=== PATIENT | male | born 1930 | race Caucasian/White ===

== ENCOUNTER 2016-11-03 16:41 | Emergency (ER) | payer OTHER ==
[2016-11-03 16:56] VITALS: BP 149/56; PULSE 66; RESP 18; TEMP 97.3; O2SAT 96
--- NOTE | 2016-11-03 17:13 | EDPHY ---
H & P Stated Complaint: pt having some delayed clotting with scrapes/on plavix Time Seen by Provider: 11/03/16 17:12 HPI/ROS: CHIEF COMPLAINT: Concerned about prolonged bleeding from superficial cut HISTORY OF PRESENT ILLNESS: The patient presents to the ED after he developed some prolonged bleeding from 2 superficial cuts over the past several days. The patient had a small cut on his arm and face. The patient reported took nearly 3 days to scab over and stop bleeding. The patient denies any additional complaints of bleeding. He is currently taking Plavix. The patient denies specifically melena or any hematemesis. The patient denies any acute traumatic complaints. REVIEW OF SYSTEMS: A comprehensive 10 point review of systems is otherwise negative aside from elements mentioned in the history of present illness. Source: Patient Exam Limitations: No limitations - Personal History Current Tetanus/Diphtheria Vaccine: Yes Tetanus Vaccine Date: 2012 - Medical/Surgical History Hx Asthma: No Hx Chronic Respiratory Disease: No Hx Diabetes: Yes Hx Cardiac Disease: Yes Hx Renal Disease: No Hx Cirrhosis: No Hx Alcoholism: No Hx HIV/AIDS: No Hx Splenectomy or Spleen Trauma: No Other PMH: MEDICAL- VTACH W/ SUDDEN , CVA- 1973, TIA'S, DM, DEFIBRILLATOR, PACEMAKER, HTN, HLD, RHABDOMYLOSIS [place]- 'S, HYPOTHYROID. SURGICAL- TRIPLE BYPASS, STENTS, ORTHO - Social History Smoking Status: Never smoked - Physical Exam Exam: General Appearance: Alert, no distress Eyes: Pupils equal and round no pallor or injection ENT, Mouth: Mucous membranes moist Respiratory: There are no retractions, lungs are clear to auscultation Cardiovascular: Regular rate and rhythm Gastrointestinal: Abdomen is soft and nontender, no masses, bowel sounds normal Neurological: A&O, normal motor function, normal sensory exam, normal cranial nerves Skin: Superficial hemostatic abrasions noted to arm and face Musculoskeletal: Neck is supple nontender Extremities: symmetrical, full range of motion Constitutional: Initial Vital Signs Temperature (C) 36.3 C 11/03/16 16:52 Heart Rate 66 11/03/16 16:52 Respiratory Rate 18 11/03/16 16:52 Blood Pressure 149/56 H 11/03/16 16:52 O2 Sat (%) 96 11/03/16 16:52 O2 Delivery Mode Room Air Allergies/Adverse Reactions: No Known Allergies Allergy (Verified 11/03/16 16:49) Home Medications: Medication Instructions Recorded Aspirin [Aspirin 81mg (OTC)] 81 mg PO DAILY 03/26/13 Cholecalciferol Vit D3 [Vitamin D3 2,000 units PO TID 03/26/13 2000 units (OTC)] Coenzyme Q10 [Co Q-10 30 mg (OTC)] 30 mg PO DAILY 03/26/13 Gemfibrozil [Lopid 600 MG (RX)] 600 mg PO BIDAC 03/26/13 Herbals/Supplements -Info Only 1 each PO AD 03/26/13 Levothyroxine [Synthroid 75 mcg 75 mcg PO DAILY 03/26/13 (RX)] Losartan Potassium [Cozaar] 50 mg PO HS 03/26/13 Magnesium Oxide [Magnesium Oxide 400 mg PO BID 03/26/13 400 mg (OTC)] Metoprolol Succinate Xr [Toprol Xl 50 mg PO HS 03/26/13 50 mg (RX)] Selenium [Selenium 200mcg (OTC)] 200 mcg PO DAILY 03/26/13 Vitamin B Complex [Vitamin B 1 each PO DAILY 03/26/13 Complex (OTC)] Vitamin E [Vitamin E 400 units 400 unit PO DAILY 03/26/13 (OTC)] metFORMIN HCL [Glucophage] 500 mg PO BIDMEAL 03/26/13 Clopidogrel 09/23/13 Lopid 600 MG (RX) 09/23/13 Losartan Potassium 09/23/13 MAGNESIUM 09/23/13 Metoprolol Succinate Xr [Toprol Xl 09/23/13 50 mg (RX)] Medical Decision Making ED Course/Re-evaluation: The patient has been reassured there is no evidence of life-threatening bleeding. I would recommend that he continue Plavix as directed given the fact his superficial abrasions are completely hemostatic. Departure - Departure Disposition: Home, Routine, Self-Care Clinical Impression: Superficial abrasion Condition: Good Instructions: Abrasion (ED) Additional Instructions: 1. Please return to the emergency department for uncontrolled bleeding. 2. Please continue Plavix as directed. 3. Please follow up with your primary care provider as needed. Referrals: Monet Buenrostro MD [Primary Care Provider] - As per Instructions
== END 2016-11-03 17:29 | disposition home or self-care (01) ==
DX: S00.81XA Abrasion of other part of head, initial encounter (principal); S40.819A Abrasion of unspecified upper arm, initial encounter; I10 Essential (primary) hypertension; E11.9 Type 2 diabetes mellitus without complications; Z86.73 Personal history of transient ischemic attack (TIA), and cerebral infarction without residual deficits; Z95.0 Presence of cardiac pacemaker; Z79.82 Long term (current) use of aspirin; Z79.84 Long term (current) use of oral hypoglycemic drugs; W45.8XXA Other foreign body or object entering through skin, initial encounter

== ENCOUNTER 2017-07-24 21:43 | Inpatient (IN) | payer OTHER ==
--- NOTE | 2017-07-24 21:53 | EDPHY ---
H & P Time Seen by Provider: 07/24/17 21:46 HPI/ROS: CHIEF COMPLAINT: AICD firing HISTORY OF PRESENT ILLNESS: Patient in July of 2014 had an Evera XT implantable defibrillator placed by Dr. Armin Leon for ventricular tachycardia with syncope. Patient presents today because he had his defibrillator started firing at 2:30 p.m.. He says it went off 6 times the last 1 at 8:15 p.m.. Was not associated with chest pain or shortness of breath palpitations or syncope. Brought in by EMS with no further defibrillator shocks noted. REVIEW OF SYSTEMS: Eye: no change in vision ENT: no sore throat Cardiac: no chest pain or syncope Pulmonary: no cough or SOB Abdomen: no vomiting, diarrhea, abdominal pain Musculoskeletal: no back pain Skin: no rash Neuro: no headache Constitutional: no fever : no urinary symptoms A comprehensive 10 point review of systems is otherwise negative aside from elements mentioned in the history of present illness. PAST MEDICAL HISTORY: Bypass grafting in 2012, defibrillator placement in 2013 as above. Ventricular tachycardia. 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 Eyes: No scleral icterus. ENT, Mouth: Normal mucous membranes. Respiratory: Normal respiratory effort, breath sounds equal, lungs are clear to auscultation. Cardiovascular: Regular rate and rhythm. Gastrointestinal: Abdomen is soft and non tender. Neurological: Alert and oriented x3. Normally conversant. Face symmetric, normal movement and sensation in all extremities. Skin: Warm and dry, no rashes. Musculoskeletal: No peripheral edema and no joint swelling. Psychiatric: Not agitated. Emergency Department course/MDM: Supplemental oxygen placed for hypoxia, 2 L by nasal cannula. Plan for [employer] pacer interrogation, admission for monitoring, cardiology consultation. 4: Patient got shocked in x-ray, review of strip shows a 30+ beat run of ventricular tachycardia. 2217: Discussed with Manju. Get interrogation tonight, [employer] rep to see alexey, amiodarone 150mg then drip protocol. 2222: marybeth Cowart to admit. 2227: 3rd shock for recurrent DVT in the emergency department. Amiodarone started in the emergency department. Magnesium 2g IV. Smoking Status: Never smoked Constitutional: Initial Vital Signs Temperature (C) 36.5 C 07/24/17 21:45 Heart Rate 100 07/24/17 21:45 Respiratory Rate 18 07/24/17 21:45 Blood Pressure 116/80 07/24/17 21:45 O2 Sat (%) 90 L 07/24/17 21:45 O2 Delivery Mode Room Air Allergies/Adverse Reactions: No Known Allergies Allergy (Verified 11/03/16 16:49) Home Medications: Medication Instructions Recorded Aspirin [Aspirin 81mg (OTC)] 81 mg PO DAILY 03/26/13 Cholecalciferol Vit D3 [Vitamin D3 2,000 units PO TID 03/26/13 2000 units (OTC)] Coenzyme Q10 [Co Q-10 30 mg (OTC)] 30 mg PO DAILY 03/26/13 Gemfibrozil [Lopid 600 MG (RX)] 600 mg PO BIDAC 03/26/13 Herbals/Supplements -Info Only 1 each PO AD 03/26/13 Levothyroxine [Synthroid 75 mcg 75 mcg PO DAILY 03/26/13 (RX)] Losartan Potassium [Cozaar] 50 mg PO HS 03/26/13 Magnesium Oxide [Magnesium Oxide 400 mg PO BID 03/26/13 400 mg (OTC)] Metoprolol Succinate Xr [Toprol Xl 50 mg PO HS 03/26/13 50 mg (RX)] Selenium [Selenium 200mcg (OTC)] 200 mcg PO DAILY 03/26/13 Vitamin B Complex [Vitamin B 1 each PO DAILY 03/26/13 Complex (OTC)] Vitamin E [Vitamin E 400 units 400 unit PO DAILY 03/26/13 (OTC)] metFORMIN HCL [Glucophage] 500 mg PO BIDMEAL 03/26/13 Clopidogrel 09/23/13 Lopid 600 MG (RX) 09/23/13 Losartan Potassium 09/23/13 MAGNESIUM 09/23/13 Metoprolol Succinate Xr [Toprol Xl 09/23/13 50 mg (RX)] Medical Decision Making - Diagnostics EKG Interpretation: 12-lead EKG interpreted by me; official reading is in trace master. My interpretation is sinus rhythm with left bundle branch block. Imaging Results: Imaging Impressions Chest X-Ray 07/24/17 21:53 Impression: 1. Pacemaker/AICD unchanged in configuration. 2. No pulmonary edema or acute process. Critical Care Time: Critical care time spent by me, Dr. Craig, exclusively with the care of this patient was 35 minutes, exclusive of PA or NETWORK DIAGNOSTIC SUPPORT SPECIALIST time and exclusive of separate procedures. The organ system at risk was cardiovascular and I ordered EKG, oxygen, interpretation of multiple rhythm strips, consultation with hospitalist and whipper beater, IV magnesium and amiodarone; to stabilize the patient and prevent worsening of the patient's condition. - Data Points Laboratory Results: Laboratory Results 07/24/17 21:55 07/24/17 21:55 07/24/17 07/24/17 21:55 21:55 WBC 8.02 10^3/uL 10^3/uL (3.80-9.50) RBC 4.71 10^6/uL 10^6/uL (4.40-6.38) Hgb 14.2 g/dL g/dL (13.7-17.5) Hct 41.4 % % (40.0-51.0) MCV 87.9 fL fL (81.5-99.8) MCH 30.1 pg pg (27.9-34.1) MCHC 34.3 g/dL g/dL (32.4-36.7) RDW 13.2 % % (11.5-15.2) Plt Count 311 10^3/uL 10^3/uL (150-400) MPV 10.5 fL fL (8.7-11.7) Neut % (Auto) 62.9 % % (39.3-74.2) Lymph % (Auto) 19.8 % % (15.0-45.0) [place] % (Auto) 8.9 % % (4.5-13.0) Eos % (Auto) 7.4 % % (0.6-7.6) Baso % (Auto) 0.6 % % (0.3-1.7) Nucleat RBC Rel Count 0.0 % % (0.0-0.2) Absolute Neuts (auto) 5.05 10^3/uL 10^3/uL (1.70-6.50) Absolute Lymphs (auto) 1.59 10^3/uL 10^3/uL (1.00-3.00) Absolute Monos (auto) 0.71 10^3/uL 10^3/uL (0.30-0.80) Absolute Eos (auto) 0.59 10^3/uL H 10^3/uL (0.03-0.40) Absolute Basos (auto) 0.05 10^3/uL 10^3/uL (0.02-0.10) Absolute Nucleated RBC 0.00 10^3/uL 10^3/uL (0-0.01) Immature Gran % 0.4 % % (0.0-1.1) Immature Gran # 0.03 10^3/uL 10^3/uL (0.00-0.10) Sodium 143 mEq/L mEq/L (134-144) Potassium 4.5 mEq/L mEq/L (3.5-5.2) Chloride 101 mEq/L mEq/L (97-110) Carbon Dioxide 22 mEq/l mEq/l (22-31) Anion Gap 20 mEq/L H mEq/L (8-16) BUN 40 mg/dL H mg/dL (7-23) Creatinine 1.0 mg/dL mg/dL (0.7-1.3) Estimated GFR > 60 Glucose 176 mg/dL H mg/dL (70-100) Calcium 10.5 mg/dL H mg/dL (8.5-10.4) Troponin I 0.013 ng/mL ng/mL (0.000-0.034) Medications Given: Magnesium Sulfate (Magnesium Sulf 2 Gm (Premix)) 50 mls @ 50 mls/hr IV EDNOW ONE Stop: 07/24/17 23:20 Last Admin: 07/24/17 22:38 Dose: 50 mls Amiodarone HCl (Amiodarone Hcl) 200 mls @ 33.333 mls/hr IV ONCE ONE Stop: 07/25/17 04:20 Last Admin: 07/24/17 22:46 Dose: 200 mls Discontinued Medications Amiodarone HCl (Amiodarone Hcl) 150 mg IV EDNOW ONE Stop: 07/24/17 22:22 Last Admin: 07/24/17 22:27 Dose: Not Given Amiodarone HCl (Amiodarone Hcl) 100 mls @ 600 mls/hr IV ONCE ONE Stop: 07/24/17 22:35 Last Admin: 07/24/17 22:35 Dose: 100 mls Departure - Departure Disposition: [facility] Clinical Impression: Ventricular tachycardia Condition: Serious
[2017-07-24 22:09] LABS: % IMMATURE GRANULYOCYTES 0.4 % (0.0-1.1); ABSOLUTE IMMATURE GRANULOCYTES 0.03 10^3/uL (0.00-0.10); ADD DIFF? NO; ADD MORPH? NO; ADD SCAN? NO; ATYPICAL LYMPHOCYTE FLAG 0 (0-99); FRAGMENT RBC FLAG 0 (0-99); HEMATOCRIT 41.4 % (40.0-51.0); HEMOGLOBIN 14.2 g/dL (13.7-17.5); LEFT SHIFT FLG 0 (0-99); LIPEMIA HEMOLYSIS FLAG 90 (0-99); MEAN CELL HEMOGLOBIN 30.1 pg (27.9-34.1); MEAN CELL HEMOGLOBIN CONCENTR. 34.3 g/dL (32.4-36.7); MEAN CELL VOLUME 87.9 fL (81.5-99.8); MEAN PLATELET VOLUME 10.5 fL (8.7-11.7); PLATELET CLUMPS FLAG 0 (0-99); PLATELET COUNT 311 10^3/uL (150-400); RED BLOOD CELL COUNT 4.71 10^6/uL (4.40-6.38); RED CELL DISTRIBUTION WIDTH 13.2 % (11.5-15.2)
[2017-07-24 22:21] LABS: ANION GAP 20 mEq/L (8-16); CALCIUM 10.5 mg/dL (8.5-10.4); CARBON DIOXIDE 22 mEq/l (22-31); CHLORIDE 101 mEq/L (97-110); GLOMERULAR FILTRATION RATE > 60; GLUCOSE 176 mg/dL (70-100); POTASSIUM 4.5 mEq/L (3.5-5.2); SODIUM 143 mEq/L (134-144)
[2017-07-24] MEDS ORDERED: MAGNESIUM SULF 2 GM/WATER 50 ML IV ONE (22:21)
[2017-07-24] MEDS ORDERED: AMIODARONE HCL 200 ML IV ONE ×2 (22:21)
[2017-07-24] MEDS ORDERED: AMIODARONE HCL 150 MG/3 ML VIAL IV ONE (22:21)
--- NOTE | 2017-07-24 22:21 | CPEKG ---
Heart Rate: 87 RR Interval: 690 QRSD Interval: 154 QT Interval: 424 QTC Interval: 510 QRS [place]: -26 T Wave [place]: 185 EKG Severity - ABNORMAL ECG - EKG Impression: SINUS RHYTHM EKG Impression: LEFT BUNDLE BRANCH BLOCK Electronically Signed By: Charlie Craig 24-Jul-2017 22:29:24
[2017-07-24] MEDS ORDERED: ONDANSETRON DISINTEGRATING 4 MG TAB PO PRN (22:24)
[2017-07-24] MEDS ORDERED: ONDANSETRON 4 MG/2 ML VIAL IVP PRN (22:24)
[2017-07-24] MEDS ORDERED: ACETAMINOPHEN 325 MG TAB PO PRN (22:24)
[2017-07-24] MEDS ORDERED: AMIODARONE HCL 150 MG/100 ML BAG (1.5 MG/ML) IV ONE (22:25)
[2017-07-24] MEDS ORDERED: AMIODARONE HCL 100 ML IV ONE (22:26)
[2017-07-24 22:33] LABS: TROPONIN I 0.013 ng/mL (0.000-0.034)
--- NOTE | 2017-07-25 01:40 | PDGENHP ---
History and Physical - Chief Complaint ICD shock - History of Present Illness 87 w/ hx CAD s/p CABG in 2013 as well as CHF and AICD placement presents with multiple ICD shocks. Patient was in usual state of health until about 11 AM on day of admission when he felt his ICD fire. This happened several more times throughout the day so he came to the ED. He denies chest pain, shortness of breath, leg swelling, or recent illness prior to this event. He reports that he usually notes a shock maybe once a month. He also thinks that he may have missed a dose of medication this morning. He has a home health service that helps him with his medication organization every 2 weeks. [employer] rep interrogated device and confirmed adequate functioning. Review of rhythm strips revealed multiple runs of VT terminated by appropriate shocks. Patient received a total of 12 shocks on day admission. His last shocks per device interrogation were once on 06/19 and once on 07/13 also for VT. History Information - Allergies/Home Medication List Allergies/Adverse Reactions: No Known Allergies Allergy (Verified 11/03/16 16:49) Home Medications: Aspirin [Aspirin 81mg (OTC)] 81 mg PO DAILY 03/26/13 [Last Taken 03/26/13] Cholecalciferol Vit D3 [Vitamin D3 2000 units (OTC)] 2,000 units PO TID [Last Taken 03/26/13 08:00] Coenzyme Q10 [Co Q-10 30 mg (OTC)] 30 mg PO DAILY 03/26/13 [Last Taken 03/25/13 16:00] Gemfibrozil [Lopid 600 MG (RX)] 600 mg PO BIDAC 03/26/13 [Last Taken 03/26/13 08 :00] Herbals/Supplements -Info Only 1 each PO AD 03/26/13 [Last Taken Unknown] Levothyroxine [Synthroid 75 mcg (RX)] 75 mcg PO DAILY 03/26/13 [Last Taken 03/26 06:00] Losartan Potassium [Cozaar] 50 mg PO HS 03/26/13 [Last Taken 03/25/13] Magnesium Oxide [Magnesium Oxide 400 mg (OTC)] 400 mg PO BID 03/26/13 [Last Taken 03/25/13 20:00] Metoprolol Succinate Xr [Toprol Xl 50 mg (RX)] 50 mg PO HS 03/26/13 [Last Taken 03/25/13] Selenium [Selenium 200mcg (OTC)] 200 mcg PO DAILY 03/26/13 [Last Taken Unknown] Vitamin B Complex [Vitamin B Complex (OTC)] 1 each PO DAILY 03/26/13 [Last Taken 03/25/13 08:00] Vitamin E [Vitamin E 400 units (OTC)] 400 unit PO DAILY 03/26/13 [Last Taken 08:00] metFORMIN HCL [Glucophage] 500 mg PO BIDMEAL 03/26/13 [Last Taken 03/26/13 08:00 ] Clopidogrel 09/23/13 [Last Taken Unknown] Lopid 600 MG (RX) 09/23/13 [Last Taken Unknown] Losartan Potassium 09/23/13 [Last Taken Unknown] MAGNESIUM 09/23/13 [Last Taken Unknown] Metoprolol Succinate Xr [Toprol Xl 50 mg (RX)] 09/23/13 [Last Taken Unknown] I have personally reviewed and updated: family history, medical history - Past Medical History coronary artery disease, CHF - Surgical History Reports: coronary bypass surgery - Family History Positive for: cancer - Social History Smoking Status: Never smoked Review of Systems Review of Systems: ROS: 10pt was reviewed & negative except for what was stated in HPI & below Physical Exam Physical Exam: Temp Pulse Resp BP Pulse Ox 36.5 C 64 16 128/59 H 92 07/24/17 21:45 07/24/17 22:42 07/24/17 22:42 07/24/17 22:42 07/24/17 22:42 O2 (L/minute) 2 Constitutional: no apparent distress, not in pain Eyes: PERRL, EOMI Ears, Nose, Mouth, Throat: moist mucous membranes, no oral mucosal ulcers Cardiovascular: regular rate and rhythym, systolic murmur, No edema Respiratory: no respiratory distress, clear to auscultation Gastrointestinal: normoactive bowel sounds, soft, non-tender abdomen Skin: warm, normal color Neurologic: AAOx3, CN II-XII Intact Psychiatric: interacting appropriately, not anxious Lab Data & Imaging Review 07/24/17 21:55 07/24/17 21:55 WBC 8.02 10^3/uL (3.80-9.50) 07/24/17 21:55 RBC 4.71 10^6/uL (4.40-6.38) 07/24/17 21:55 Hgb 14.2 g/dL (13.7-17.5) 07/24/17 21:55 Hct 41.4 % (40.0-51.0) 07/24/17 21:55 MCV 87.9 fL (81.5-99.8) 07/24/17 21:55 MCH 30.1 pg (27.9-34.1) 07/24/17 21:55 MCHC 34.3 g/dL (32.4-36.7) 07/24/17 21:55 RDW 13.2 % (11.5-15.2) 07/24/17 21:55 Plt Count 311 10^3/uL (150-400) 07/24/17 21:55 MPV 10.5 fL (8.7-11.7) 07/24/17 21:55 Neut % (Auto) 62.9 % (39.3-74.2) 07/24/17 21:55 Lymph % (Auto) 19.8 % (15.0-45.0) 07/24/17 21:55 [place] % (Auto) 8.9 % (4.5-13.0) 07/24/17 21:55 Eos % (Auto) 7.4 % (0.6-7.6) 07/24/17 21:55 Baso % (Auto) 0.6 % (0.3-1.7) 07/24/17 21:55 Nucleat RBC Rel Count 0.0 % (0.0-0.2) 07/24/17 21:55 Absolute Neuts (auto) 5.05 10^3/uL (1.70-6.50) 07/24/17 21:55 Absolute Lymphs (auto) 1.59 10^3/uL (1.00-3.00) 07/24/17 21:55 Absolute Monos (auto) 0.71 10^3/uL (0.30-0.80) 07/24/17 21:55 Absolute Eos (auto) 0.59 10^3/uL (0.03-0.40) H 07/24/17 21:55 Absolute Basos (auto) 0.05 10^3/uL (0.02-0.10) 07/24/17 21:55 Absolute Nucleated RBC 0.00 10^3/uL (0-0.01) 07/24/17 21:55 Immature Gran % 0.4 % (0.0-1.1) 07/24/17 21:55 Immature Gran # 0.03 10^3/uL (0.00-0.10) 07/24/17 21:55 Sodium 143 mEq/L (134-144) 07/24/17 21:55 Potassium 4.5 mEq/L (3.5-5.2) 07/24/17 21:55 Chloride 101 mEq/L (97-110) 07/24/17 21:55 Carbon Dioxide 22 mEq/l (22-31) 07/24/17 21:55 Anion Gap 20 mEq/L (8-16) H 07/24/17 21:55 BUN 40 mg/dL (7-23) H 07/24/17 21:55 Creatinine 1.0 mg/dL (0.7-1.3) 07/24/17 21:55 Estimated GFR > 60 07/24/17 21:55 Glucose 176 mg/dL (70-100) H 07/24/17 21:55 Calcium 10.5 mg/dL (8.5-10.4) H 07/24/17 21:55 Troponin I 0.013 ng/mL (0.000-0.034) 07/24/17 21:55 Visualized and Interpreted Chest x-ray results: Yes Chest X-Ray results: no infiltrate, other (Device in correct position) Visualized and Interpreted EKG results: Yes EKG Interpretation: Positive for: left bundle branch block, normal sinsus rhythm Assessment & Plan Assessment: 87 yo M w/ hx CAD s/p CABG and CHF w/ AICD placement presents with multiple bouts of VT terminated by appropriate ICD shocks. Plan: 1. Ventricular tachycardia - Suspect scar mediated VT noting hx of CAD and CABG ; 12 bouts on day of admission terminated by appropriate ICD shocks. Device rep confirmed adequate functionality of device. Trigger is unclear noting patient denies any symptoms c/w ACS or CHF exacerbation. It is possible (per patient) that he may have missed or mixed up some of his medications on the day of admission. He is hemodynamically stable and mentating well at this time. - Cardiology consulted, Dr. Nunes recommended amiodarone gtt - Admit to ICU for close monitoring - Needs medications reconciled as patient does not recall home meds, but would consider increase in home BB dose - Will check TSH - TTE ordered 2. Hx CAD s/p CABG - No symptoms to suggest ACS. Troponin negative on admission , will not trend noting this will be skewed by ICD shocks. 3. Ischemic cardiomyopathy - Last TTE from 2012 showed EF of 41%. Appears very well compensated on exam. 4. DM - Will manage w/ SSI as inpatient. 5. Hypothyroid - On LTX as outpatient, will check TSH. Diet - Maintain NPO for now in case he needs a procedure Code - Full Ppx - SCDs Dispo - Admit to observation status
[2017-07-25] MEDS ORDERED: AMIODARONE A.FIB-18HR INFSN (ORDER 3/3) IV ONE (04:30)
[2017-07-25 05:13] LABS: % IMMATURE GRANULYOCYTES 0.2 % (0.0-1.1); ABSOLUTE IMMATURE GRANULOCYTES 0.02 10^3/uL (0.00-0.10); ADD DIFF? NO; ADD MORPH? NO; ADD SCAN? NO; ATYPICAL LYMPHOCYTE FLAG 0 (0-99); FRAGMENT RBC FLAG 0 (0-99); HEMATOCRIT 37.1 % (40.0-51.0); HEMOGLOBIN 12.7 g/dL (13.7-17.5); LEFT SHIFT FLG 0 (0-99); LIPEMIA HEMOLYSIS FLAG 90 (0-99); MEAN CELL HEMOGLOBIN 29.8 pg (27.9-34.1); MEAN CELL HEMOGLOBIN CONCENTR. 34.2 g/dL (32.4-36.7); MEAN CELL VOLUME 87.1 fL (81.5-99.8); MEAN PLATELET VOLUME 10.2 fL (8.7-11.7); PLATELET CLUMPS FLAG 0 (0-99); PLATELET COUNT 280 10^3/uL (150-400); RED BLOOD CELL COUNT 4.26 10^6/uL (4.40-6.38); RED CELL DISTRIBUTION WIDTH 13.2 % (11.5-15.2)
[2017-07-25 05:26] LABS: ANION GAP 14 mEq/L (8-16); CALCIUM 9.8 mg/dL (8.5-10.4); CARBON DIOXIDE 21 mEq/l (22-31); CHLORIDE 107 mEq/L (97-110); CREATININE 0.8 mg/dL (0.7-1.3); GLOMERULAR FILTRATION RATE > 60; GLUCOSE 107 mg/dL (70-100); MAGNESIUM 2.6 mg/dL (1.6-2.3); SODIUM 142 mEq/L (134-144)
[2017-07-25] MEDS: INSULIN LISPRO 100 UNIT/ML SC SCH ×3 (09:04→18:41)
--- NOTE | 2017-07-25 11:44 | ASMTCASEMG ---
Living Arrangements What is your living Answers: Alone arrangement? Who do you live with? Type Of Residence What kind of residence do Answers: House you live in? Discharge Plan Comments Coordination Status Comments Notes: Patient is an 87yo who was admitted for observation due to multiple ICD shocks. Patient has a hx of CAD s/p CABG in 2012 as well as CHF. Patient's ICD fired 12 times prior to patient coming to ER. Patient's ventricular tachycardia may have been affected by missed or mix up of his medications. He does have a home health nurse that helps him with his medications every 2 weeks. Patient's ICD device was determined to be functioning. OT/PT have been ordered. D/C needs TBD. CM will follow. Date Signed: 07/25/2017 11:44 AM Electronically Signed By:Rashida Moreno LCSW
--- NOTE | 2017-07-25 15:03 | ASMTCMCOM ---
CM Note CM Note Notes: Patient's son Pablo states patient does not have a home health service but has friends who help with his medications and cleaning his house. Pablo gave the number for Fernie, , the friend who does medications every 2 weeks. Coordinating with her and son Pablo to have medications done once per week instead of every other week. Spoke with patient's daughter Priya Corey to give her an update on her dad. ([phone]). Patient also has another son, Jerome who lives in [place] ([phone]). CM will follow. Date Signed: 07/25/2017 03:03 PM Electronically Signed By:Rashida Moreno LCSW
[2017-07-25] MEDS ORDERED: NITROGLYCERIN 0.4 MG BTL SL PRN (17:21)
[2017-07-25] MEDS ORDERED: BENZONATATE 100 MG CAP PO PRN (17:21)
[2017-07-25] MEDS ORDERED: HYDROCODONE/APAP 5/325 TAB PO PRN (17:21)
--- NOTE | 2017-07-25 17:46 | HOSPPROG ---
Hospitalist Progress Note Assessment/Plan: Assessment: 87 yo M p/w acute ventricular tachycardia w/ resultant AICD firing x 12 Plan: 1. Ventricular tachycardia. Acute on chronic, suspect scar mediated VT noting hx of CAD and CABG, 12 bouts on day of admission terminated by appropriate ICD shocks - stabilized w/ amio gtt - d/w Dr. Sherman, he recommends completing the IV amio load and transitioning to high dose PO load for 400mg bid for total of 10g, monitoring on tele o/n to ensure no subsequent high risk ectopy - cont HS metopsucc 50 - repeat K/Mg in AM 2. Chronic CAD s/p CABG - No symptoms to suggest ACS. Troponin negative on admission 3. Chronic systolic CHF w/ Ischemic cardiomyopathy - Last TTE from 2012 showed EF of 41%. Appears very well compensated on exam. 4. Chronic DM2 - Will manage w/ SSI as inpatient. 5. Hypothyroid - On LTX as outpatient, TSH wnl Diet - Cardiac Code - Full Ppx - Lovenox 40 Dispo - Upgrade to inpatient admission status re: anticipated LOS > 48hrs for reasonable medical necessity including acute ventricular tachycardia rendering patient high risk of worsening morbidity/mortality w/o further eval and mgmt, requires ongoing tele monitoring as he receives amio load. Subjective: patient w/o further shock, no chest pain, prefers to be called "Steven Bear" Objective: Vital Signs Temp Pulse Resp BP Pulse Ox 36.6 C 64 12 147/67 H 97 07/25/17 00:00 07/25/17 16:00 07/25/17 16:00 07/25/17 16:00 07/25/17 16:00 Laboratory Results 07/25/17 05:00 07/25/17 05:00 07/24/17 07/25/17 07/26/17 05:59 05:59 05:59 Intake Total 325 Balance 325 - Physical Exam Constitutional: no apparent distress, appears nourished, not in pain, chronically ill appearing Cardiovascular: systolic murmur (II/ at apex), No irregularly irregular, No tachycardia, No edema Respiratory: no respiratory distress, no rales or rhonchi, clear to auscultation Gastrointestinal: normoactive bowel sounds, soft, non-tender abdomen, no palpable masses Neurologic: AAOx3, sensation intact bilaterally, No weakness Psychiatric: interacting appropriately, not anxious, not encephalopathic, thought process linear ICD10 Worksheet Patient Problems: Problems Problem Status Onset Ventricular tachycardia Acute
--- NOTE | 2017-07-25 18:09 | ECHO ---
[email or web address] [address] [address] Main: [phone] Fax: Transthoracic Echocardiogram Name: CITLALI MCCULLOUGH MR#: [id number] Study Date: 07/25/2017 Study Time: 08:14 AM Date of : 1930 Age: 87 year(s) Height: 167.6 cm (66 in.) Weight: 77.11 kg (170 lb.) BSA: 1.87 m2 Gender: Male Examination: Echo Indication: Ventricular tachycardia, Pacemaker Image Quality: Contrast: Requested by: Tuan Rodriguez BP: 132 mmHg/46 mmHg Heart Rate: Rhythm: Normal sinus rhythm with ectopy Indication: Ventricular tachycardia, Pacemaker Procedure Staff Supervisor [facility]: Tanner Medel Reading Physician: John Sherman Requesting Provider: Measurements: Chambers Valvular Assessment AV/MV Valvular Assessment TV/PV Normal Normal Normal Name Value Range Name Value Range Name Value Range Ao Iris (MM): 3.7 cm (2.2 cm-3.7 AV Vmax: 2.13 m/s (1 m/s-1.7 TR Vmax: 2.34 mm/s ( - ) cm) m/s) TR PGmax: 22 mmHg ( - ) IVSd (2D): 1.2 cm (0.6 cm-1.1 AV maxP mmHg ( - ) syst. PAP: 27 mmHg ( - ) cm) AV meanP mmHg ( - ) PV Vmax: 0.91 m/s (0.6 m/s-0.9 LVDd (2D): 5.1 cm (4.2 cm-5.9 LVOT Vmax: 0.74 m/s (0.7 m/s-1.1 m/s) cm) m/s) PV PGmax: 3 mmHg ( - ) LVDs (2D): 2.2 cm (2.1 cm-4 ANALI (Vmax): 1.2 cm2 ( - ) cm) ANALI (VTI): 1.0 cm ( - ) LVPWd (2D): 1.2 cm (0.6 cm-1 MV E Vmax: 0.93 m/s ( - ) cm) MV A Vmax: 0.99 m/s ( - ) LVOTd 2.1 cm 2.1 cm mm MV E/A: 0.94 ( - ) LVEF (BP): 30 % (>=55 %) Visual EF: 35 % EF Range: 30-35 % Continued Measurements: Chambers Valvular Assessment AV/MV Valvular Assessment TV/PV Name Value Name Value Name Value LADs Lon.0 cm MV E/E' Septal: 18.30 CVP (est.): 5 mmHg LA Area: 20.5 cm2 MV E/E' Lateral: 9.80 LA Volume: 74 ml LA Volume Index: 39.6 ml/m2 Patient: CITLALI MCCULLOUGH Study Date: 07/25/2017 Page 1 of 2 08:14 AM Findings: Left Ventricle: Normal size left ventricle. Mild concentric LV hypertrophy. The ejection fraction is estimated to be 30-35 %. The ejection fraction is visually estimated to be 35 %. There is paradoxic septal motion suggestive of bundle branch block, paced cardiac rhythm, or prior cardiac surgery. Right Ventricle: Normal size right ventricle. Normal RV function. There is a pacemaker lead noted in the right ventricle. Left Atrium: The left atrium is mildly dilated. Right Atrium: The right atrium is normal in size. There is an ICD lead noted in the right atrium. Mitral Valve: Mild mitral valve leaflet calcification is present. Mild mitral valve regurgitation is present. Aortic Valve: Moderate aortic cusp calcification is present. Trivial aortic valve regurgitation. Mild-moderate aortic valve stenosis. Turbulent flow noted thru the aortic valve with a Vmax of 2.3 m/s with a mean Pg of 14 mmHg. Dimensionless index 0.29. Tricuspid Valve: Mild tricuspid regurgitation is present. The pulmonary artery pressure is normal. Doming of the tricuspid valve leaflets consistent with moderate tricuspid valve stenosis. Pulmonic Valve: The pulmonic valve is normal in appearance and function. Aorta: The aorta is normal. Pericardium: No pericardial effusion. Exam Comments: There is inferior akinesis, there is basilar inferoseptal hypokinesis. Ectopy noted during exam.. (No Signature Object) Patient: CITLALI MCCULLOUGH Study Date: 07/25/2017 Page 2 of 2 08:14 AM [id number]
[2017-07-25] MEDS: GEMFIBROZIL 600 MG TAB PO SCH (18:40)
[2017-07-25] MEDS: metFORMIN HCL 500 MG TAB PO SCH (18:40)
[2017-07-25] MEDS: AMIODARONE HCL 200 MG TAB PO SCH (19:53)
--- NOTE | 2017-07-25 20:42 | GCON ---
[f rep st] CONSULTATION CARDIOLOGY CONSULTATION DATE OF CONSULTATION: 07/25/2017 INDICATION FOR CONSULTATION: Ventricular tachycardia. HISTORY OF PRESENT ILLNESS: The patient is a pleasant 87-year-old gentleman, well known to [facility], with a history of coronary artery disease and recurrent ventricular tachycardia, status post ICD implantation. He has a known history of multiple ICD shocks in the past. He was last seen by Dr. Leon on June 26, 2017. He had 2 previous shocks just prior to his office visit at that time. He has remained fairly well controlled on medications, including metoprolol succinate 50 mg once daily. He states he was in his usual state of health until he came in yesterday after receiving approximately 12 shocks from his ICD. He states he was getting out of his car and walking when he was shocked and had multiple shocks after that, prompting his presentation to [facility] for further evaluation. He did undergo ICD interrogation by the [employer] pharmacy services representative and confirmed normal device function. Rhythm strips confirmed multiple runs of ventricular tachycardia, terminated by appropriate shocks. He received a total of 12 shocks on the day of admission, and his last shock prior to this interrogation was on June 19 and again on July 13, 2017, also for ventricular tachycardia. Last evening, he was initiated on an amiodarone drip. He has had no further ICD shocks since initiating amiodarone. At the time of my exam, he is resting comfortably, without cardiac complaint. He denies complaints of chest pain, chest pressure, shortness of breath, or dyspnea. No complaints of PND, orthopnea, or lower extremity edema. He has no complaints of fevers, chills, sweats, nausea, vomiting, or diaphoresis. He states he may have missed some of his medications over the last several days, but is uncertain which medications. He is with his son, who is involved in his care. PAST MEDICAL HISTORY: Notable for: 1. Coronary artery disease, status post ICD. 2. Dementia. 3. Diabetes. 4. History of ischemic cardiomyopathy. 5. Peripheral vascular disease. 6. History of ventricular tachycardia. PAST SURGICAL HISTORY: Includes ICD implantation, as well as carotid endarterectomy. MEDICATIONS: On admission include aspirin 81 mg daily, gemfibrozil 600 mg daily , losartan 50 mg daily, magnesium 200 mg daily, metformin 500 mg daily, metoprolol succinate 50 mg daily, sublingual nitroglycerin, oxybutynin 10 mg daily, Plavix 75 mg daily, Synthroid 50 mcg daily, and vitamin D3. ALLERGIES: Include atorvastatin and statins in general. SOCIAL HISTORY: He is . He lives alone. He has 2 children. His son who is with him is involved in his care. PHYSICAL EXAMINATION: VITAL SIGNS: Blood pressure 147/61, heart rate of 64, in a sinus rhythm, respiratory rate of 12, oxygen saturation 97% on room air. GENERAL: He is awake, alert, oriented, and appropriate. He responds appropriately to questions, although he does have the ability to wander from the topic of conversation occasionally. CARDIAC: S1, S2. Regular rate and rhythm. No murmurs, rubs, or gallops. ABDOMEN: Soft, nontender, nondistended. LUNGS: Clear to auscultation bilaterally. NECK: There is no evidence of JVP. EXTREMITIES: There is no evidence of cyanosis, clubbing, or edema. TELEMETRY: Demonstrates a paced rhythm. DATA: Lab work demonstrates a white blood cell count of 8.7, hemoglobin of 12.7 , hematocrit of 37.1, and platelet count of 280. Sodium 142, potassium 4.0, chloride 107, bicarb 21, BUN 35, creatinine 0.8, glucose 107. Troponin on admission 0.013. TSH 3.2. Magnesium 2.6. IMPRESSION: 1. Recurrent ventricular tachycardia, requiring 12 shocks, occurring yesterday. No further ICD shocks since initiation of amiodarone. 2. Known history of recurrent implantable cardioverter-defibrillator shocks. 3. History of coronary artery disease. 4. History of coronary artery bypass graft. 5. History of carotid artery disease. PLAN: In the setting of multiple shocks, now totaling 12 in the last 24 hours, that were appropriate for ventricular tachycardia and the fact that he has responded well to IV amiodarone, would recommend he be loaded with oral amiodarone. Recommend the followin. Complete the current bag of IV amiodarone. 2. Initiate oral amiodarone at 400 mg p.o. b.i.d. x11 days and then switch to 200 mg once daily. 3. Continue current outpatient medications, including the current dose of metoprolol succinate at 50 mg once daily. 4. Would recommend he remain in the hospital overnight for continued cardiac monitoring and discharge home with close followup with Dr. Leon at [facility]. 45 min spent coordinating care /[id number]/MODL MTDD
[2017-07-25] MEDS ORDERED: METOPROLOL SUCCINATE XR 50 MG TAB PO SCH (21:00)
[2017-07-26 00:40] VITALS: O2SAT 91
[2017-07-26] MEDS: TRIAMCINOLONE 0.1% 15 GM CRTUBE TP SCH ×2 (04:14→11:22)
[2017-07-26] MEDS ORDERED: LEVOTHYROXINE 50 MCG TAB PO SCH (06:00)
[2017-07-26 06:19] LABS: ANION GAP 14 mEq/L (8-16); CALCIUM 9.9 mg/dL (8.5-10.4); CARBON DIOXIDE 21 mEq/l (22-31); CHLORIDE 105 mEq/L (97-110); CREATININE 0.9 mg/dL (0.7-1.3); GLOMERULAR FILTRATION RATE > 60; GLUCOSE 101 mg/dL (70-100); POTASSIUM 4.6 mEq/L (3.5-5.2); SODIUM 140 mEq/L (134-144)
[2017-07-26] MEDS: GEMFIBROZIL 600 MG TAB PO SCH (08:11)
--- NOTE | 2017-07-26 08:38 | PDMN ---
Medical Necessity Medical necessity: Change to IP, as of 07/25/17, per MD; los >2 mn for ongoing monitoring/management of acute Vtach rendering pt high risk of worsening morbidity/mortality w/o further eval/mgmt., requires ongoing tele monitoring as pt receives amio load; hx chronic CAD s/p CABG, chronic systolic CHF w/ischemic cardiomyopathy, DM2; per progress note & order 07/25/17
[2017-07-26] MEDS: AMIODARONE HCL 200 MG TAB PO SCH (08:59)
[2017-07-26] MEDS: INSULIN LISPRO 100 UNIT/ML SC SCH ×2 (09:00→13:32)
[2017-07-26] MEDS ORDERED: MAGNESIUM OXIDE 400 MG TAB PO SCH (09:00)
[2017-07-26] MEDS ORDERED: CLOPIDOGREL BISULFATE 75 MG TAB PO SCH (09:00)
[2017-07-26] MEDS ORDERED: OMEGA-3 FATTY ACIDS 1,000 MG CAP PO SCH (09:00)
[2017-07-26] MEDS: metFORMIN HCL 500 MG TAB PO SCH (09:00)
[2017-07-26] MEDS ORDERED: LOSARTAN POTASSIUM 25 MG TAB PO SCH (09:00)
--- NOTE | 2017-07-26 12:25 | ASMTCMCOM ---
CM Note CM Note Notes: CM met w/ pt and son for dispo planning. Pt is agreeable to having HC, RN, PT, OT. Pt and son has chosen [facility]. Referral made to [facility] and they are able to accept. Pts son is okay w/ [facility] coming on Sunday. CM communicated this w/ Dr. Adhikari. CM to follow. Plan: BC; RN, PT, OT Date Signed: 07/26/2017 12:26 PM Electronically Signed By:RANDOLPH Arreaga
[2017-07-26 12:59] VITALS: BP 109/65; RESP 24; TEMP 97.7
--- NOTE | 2017-07-26 13:03 | PDIAF ---
- Diagnosis Diagnosis: Ventricular tachycardia Code Status: Full Code - Medication Management Discharge Medications: Medications to Continue on Transfer Aspirin [Aspirin 81mg (*)] 81 mg PO MWF 03/26/13 [Last Taken 07/23/17] Gemfibrozil [Lopid 600 MG (*)] 600 mg PO BIDAC 03/26/13 [Last Taken 03/26/13 08: 00] Herbals/Supplements -Info Only 1 each PO AD 03/26/13 [Last Taken Unknown] Metoprolol Succinate Xr [Toprol Xl 50 mg (*)] 50 mg PO HS 03/26/13 [Last Taken 07/23/17] Clopidogrel Bisulfate [Plavix (*)] 75 mg PO DAILY 09/23/13 [Last Taken Unknown] Losartan Potassium [Cozaar 25 mg (*)] 25 mg PO DAILY 09/23/13 [Last Taken ] Benzonatate [Tessalon Pearles] 100 mg PO TID PRN 07/25/17 [Last Taken Unknown] Hydrocodone/Acetaminophen [[place] 5/325 (*)] 1 each PO Q4-6PRN PRN 07/25/17 [ Last Taken Unknown] Levothyroxine [Synthroid 50 mcg (*)] 50 mcg PO DAILY06 07/25/17 [Last Taken Unknown] Magnesium Oxide [Magnesium Oxide 400 mg (*)] 400 mg PO DAILY 07/25/17 [Last Taken Unknown] Nitroglycerin [Nitrostat 0.4 mg (*)] 0.4 mg SL Q5M PRN 07/25/17 [Last Taken Unknown] [place]-3 Fatty Acids [Fish Oil 1000 mg (*)] 1,000 mg PO DAILY 07/25/17 [Last Taken Unknown] Triamcinolone 0.1% [Triamcinolone 0.1% Cream (*)] 1 rosa TP TID 07/25/17 [Last Taken Unknown] metFORMIN HCL [Glucophage 500 mg (*)] 500 mg PO BIDMEAL 07/25/17 [Last Taken 09:00] Acetaminophen [Tylenol 325mg (*)] 650 mg PO Q4HRS PRN tab 07/26/17 [Last Taken Unknown] Amiodarone HCl [Pacerone (*)] 400 mg PO BID #60 tab 12/21/17 [Last Taken Unknown ] Mcc Antibiotics: NA Discharge Medications: Refer to the Discharge Home Medication list for PRN reason. PICC Care - Routine: N/A - Orders Services needed: Home Care, Registered Nurse, Physical Therapy, Occupational Therapy Home Care Face to Face: I certify that this patient was under my care and that I had the required [id number] encounter meeting the encounter requirements on the discharge day. My findings support the fact that the patient is homebound as defined in Home Care Face to Face Continued: CMS Chapter 7 Medicare Benefits Manual 30.1.1 , The condition of the patient is such that there exists a normal inability to leave home and consequently, leaving home would require a considerable and taxing effort. Isolation Type: None Oxygen: NA Diet Recommendation: cardiac -low fat low salt Diet Texture: Regular Texture Diet Weigh Patient: weekly [place]: Not applicable - Follow Up Care Current Providers and Referrals: Patient,NotPresent [Primary Care Provider] - As per Instructions Armin Leon MD [Medical Doctor] - follow up in 1 week
[2017-07-26 13:52] VITALS: PULSE 83
--- NOTE | 2017-07-26 15:44 | PDDCSUM ---
Discharge Summary Discharge Summary: DISCHARGE SUMMARY FOLLOW-UP ITEMS: Outpatient interrogation DATE OF ADMISSION: 07/24/2017 DATE OF DISCHARGE: 07/26/2017 DISCHARGE DIAGNOSES: 1. Acute ventricular tachycardia 2. Chronic coronary artery disease 3. Chronic systolic congestive heart failure with ischemic cardiomyopathy CONSULTATIONS: Cardiology PROCEDURES / IMAGING: Echocardiogram demonstrating ejection fraction 35% CHIEF COMPLAINT: Acute ICD shock SUBJECTIVE: Patient is feeling well at time of discharge, he feels safe being discharged home PHYSICAL EXAM ON DISCHARGE: Systolic blood pressure 120-140, heart rate 60, satting well on room air, alert awake oriented x3, heart rhythm is regular, 1/6 systolic murmur at the right sternal border, lungs are clear to auscultation bilaterally LABS ON DISCHARGE: Potassium 4.6, creatinine 0.9, glucose 100 HOSPITAL COURSE BY PROBLEM: The patient presented with acute AICD firing, 12 shocks on the day of presentation, confirmed on AICD interrogation. The exact cause of his AICD firing is acute ventricular tachycardia, and the firing was appropriate. The patient was seen consultation by Cardiology and it was believed that there was no particularly acute precipitant, other than the patient's did myocardial scar from his previous CAD and CABG. He was placed on amiodarone IV load, and then transition to high-dose oral amiodarone, 400 mg twice daily. He required extended hospitalization to monitor affect, and he did have evidence of several runs of nonsustained ventricular tachycardia, which were self-resolving. These episodes did not require AICD firing. Cardiology recommended a 10 g load, followed by 200 mg once daily. Consequently, the patient will receive high- dose amiodarone for the next 7 subsequent days, and then will adjust his dosing accordingly. The patient did not demonstrate any evidence of acute congestive heart failure exacerbation, and he was evaluated by our therapy modalities. They recommended home care, for ongoing medication monitoring, as well as home therapy. DISCHARGE MEDICATIONS: Please see official discharge medication reconciliation sheet in chart , amiodarone 400 mg twice daily for the next 7 days, then 200 mg daily thereafter. He will continue on his home dosage of metoprolol succinate 50 mg at bedtime, as well as other home medications. DISCHARGE INSTRUCTIONS: Please follow up with Dr. Armin Leon in 1 week. TIME SPENT: Greater than 30 minutes were spent on direct patient care, as well as discharge planning and preparation.
[2017-07-27] MEDS ORDERED: ASPIRIN 81 MG CHEWABLE TAB PO SCH (08:00)
== END 2017-07-26 15:00 | disposition home health service (06) | DRG 309 ==
LOC: EDUNIT# → EDBD → F2N 23:05 → F2W 07-25 17:27 → OBSVTOIN 07-25 17:39
PROVIDERS: ADMIT Student in an Organized Health Care Education/Training Program; ATTEND Student in an Organized Health Care Education/Training Program
DX: I47.2 Ventricular tachycardia (principal); I25.5 Ischemic cardiomyopathy; I50.22 Chronic systolic (congestive) heart failure; I25.10 Atherosclerotic heart disease of native coronary artery without angina pectoris; E11.9 Type 2 diabetes mellitus without complications; E03.9 Hypothyroidism, unspecified; Z95.1 Presence of aortocoronary bypass graft; I73.9 Peripheral vascular disease, unspecified; Z79.82 Long term (current) use of aspirin
CPT/HCPCS: 92523-GN; 97116-GP; 97161-GP; 97165-GO; 97532-GO; 97535-GO; G0378; G8978-GP-CI; G8979-GP-CI; G8980-GP-CI; G8987-GO-CJ; G8988-GO-CI; G9168-GN-CL; G9169-GN-CK; J0282; J1815

== ENCOUNTER → 2018-02-25 | Outpatient (CLI) | payer OTHER | LOC: BHFA 09:30 | PROVIDERS: ATTEND Internal Medicine Interventional Cardiology | DX: I25.10 Atherosclerotic heart disease of native coronary artery without angina pectoris (principal); I25.5 Ischemic cardiomyopathy; E78.5 Hyperlipidemia, unspecified ==